=== PATIENT | female | born 1975 | race Caucasian/White ===

== ENCOUNTER 2024-07-06 17:06 | Emergency (ER) | payer OTHER ==
[2024-07-06] MEDS ORDERED: diphenhydrAMINE 50 MG/ML VIAL ONE (18:07)
[2024-07-06] MEDS ORDERED: Ketorolac Tromethamine 30 MG (1 mL) VIAL ONE (18:07)
[2024-07-06] MEDS ORDERED: Acetaminophen 500 MG TAB ONE (18:07)
== END 2024-07-06 20:27 | disposition home or self-care (01) ==
LOC: CSHERS 17:06
DX: S06.0X1A Concussion with loss of consciousness of 30 minutes or less, initial encounter (principal); W18.30XA Fall on same level, unspecified, initial encounter
CPT/HCPCS: 70450; 96374; J1200; J1885